=== PATIENT | male | born 1945 ===

== ENCOUNTER 2023-04-25 15:02 | Inpatient (IN) ==
[2023-04-25] MEDS ORDERED: Heparin 5000 UNITS/ML 1 mL VIAL IV SCH (18:00)
[2023-04-25] MEDS ORDERED: Heparin DRIP 25,000 UNITS BAG 25,000 UNITS/500 ML BAG IV SCH (18:00)
[2023-04-25] MEDS: Isosorbide Mononit ER 30mg TAB PO SCH (21:19)
[2023-04-26 06:27] LABS: ABS Lymphocytes 0.3 10^3/uL (1.0-4.8); ABS Monocytes 0.3 10^3/uL (0.0-1.1); ABS Neutrophils 6.2 10^3/uL (1.5-7.6); Hematocrit 36.7 % (38-53); Lymphocyte % 4.5 %; Mean Corpuscular Hgb Conc 35.4 g/dL (31-36); Mean Corpuscular Volume 96.1 fL (80-97); Mean Platelet Volume 7.6 fL (7.5-11.2); Nucleated Red Blood Cells % 0.1 /100 WBC (0.0-0.4); Platelet Count 160 10^3/uL (150-450); Red Blood Count 3.82 10^6/uL (4.06-5.63); Red Cell Distribution Width 13.5 % (12-17); White Blood Count 6.9 10^3/uL (3.6-10.2)
[2023-04-26 06:41] LABS: Calcium 8.8 mg/dL (8.6-10.3); Creatinine, Serum 0.97 mg/dL (0.67-1.17); Potassium 4.3 mmol/L (3.5-5.0); eGFR CKD-EPI 80.4 (>60)
[2023-04-26] MEDS: Isosorbide Mononit ER 30mg TAB PO SCH (08:01)
[2023-04-26] MEDS ORDERED: Sulfur Hexaflouride MICROSPHR 25 MG VIAL ONE (08:42)
[2023-04-26] MEDS ORDERED: DULoxetine DR 20 mg CAP PO SCH (09:00)
[2023-04-26] MEDS ORDERED: Midazolam 10 mg/10 ml VIAL 1 mg/ml 10 ml VIAL (10 mg) IV SLOW PU ONE (09:50)
[2023-04-26] MEDS ORDERED: fentaNYL 100 mcg/2 ml 50 MCG/ML VIAL IV SLOW PU ONE (09:50)
[2023-04-26] MEDS ORDERED: Naloxone 0.4 mg VIAL 0.4 mg/ml 1 ml VIAL IV PUSH PRN (09:50)
[2023-04-26] MEDS ORDERED: Flumazenil 0.5 mg/5 ml 0.1 MG/ML 5 ml VIAL IV PRN (09:50)
[2023-04-26] MEDS ORDERED: Midazolam 5 mg/5 ml VIAL 1 mg/ml 5 ml VIAL (5 mg) ONE (10:14)
[2023-04-26] MEDS ORDERED: nitroGLYCERIN DRIP 25,000 MCG/250 ML BTL ONE (10:14)
[2023-04-26] MEDS ORDERED: Lidocaine 1% MPF 5 ML VIAL ONE (10:14)
[2023-04-26] MEDS ORDERED: fentaNYL 100 mcg/2 ml 50 MCG/ML VIAL ONE (10:14)
[2023-04-26] MEDS ORDERED: Heparin 2 UNITS/ML 1000 mls 2,000 ML IV ONE (10:14)
[2023-04-26] MEDS ORDERED: Iohexol 350 (CONTRAST) 200 ML MDV IV ONE (10:15)
[2023-04-26] MEDS ORDERED: Heparin 2 UNITS/ML 1000 mls 1,000 ML IV ONE (10:15)
[2023-04-26] MEDS ORDERED: niCARdipine 0.1MG/ML IVPREMIX 20 MG/200 ML BAG IV ONE (10:15)
[2023-04-26] MEDS ORDERED: Iohexol 350 (CONTRAST) 100 ML PAK IV ONE ×2 (10:15→11:15)
[2023-04-26] MEDS ORDERED: Heparin 1,000 UNIT/ML 10 ml (10,000 UNITS) CATHLAB/DIALYSIS ONE (10:19)
[2023-04-26 11:41] LABS: High Sensitivity Troponin 3 Hr 6187 pg/mL (<20)
[2023-04-26 17:18] VITALS: BP 108/76
== END 2023-04-26 18:30 | disposition short-term general hospital (02) | DRG 282 ==
LOC: MEDTELE 16:31
PROVIDERS: ADMIT Student in an Organized Health Care Education/Training Program; ATTEND Student in an Organized Health Care Education/Training Program